=== PATIENT | female | born 1985 | race Caucasian/White ===

== ENCOUNTER 2019-03-05 12:46 | Emergency (ER) | payer OTHER ==
[2019-03-05 14:53] LABS: ADD MAN DIFF? NO
[2019-03-05 14:57] LABS: WHITE BLOOD COUNT 9.4 10^3/ul (4.8-10.8)
[2019-03-05 14:57] LABS: BASOPHILS % 0.4 % (0.0-2.0); EOSINOPHILS % 0.4 % (0.0-7.0); HEMATOCRIT 36.2 % (37.0-47.0); HEMOGLOBIN 12.2 g/dl (12.0-16.0); LYMPHOCYTES # 1.7 10^3/ul (0.8-2.9); LYMPHOCYTES % 17.8 % (15.0-51.0); MEAN CORPUSCULAR HEMOGLOBIN 27.6 pg (29.0-33.0); MEAN CORPUSCULAR HGB CONC 33.7 g/dl (32.0-37.0); MEAN CORPUSCULAR VOLUME 81.9 fl (82.0-101.0); MEAN PLATELET VOLUME 10.1 fl (7.4-10.4); MONOCYTE # 0.7 10^3/ul (0.3-0.9); MONOCYTES % 7.5 % (0.0-11.0); NEUTROPHIL # 6.9 10^3/ul (1.6-7.5); NEUTROPHILS % 73.6 % (39.0-77.0); PLATELET COUNT 340 10^3/UL (140-415); RED BLOOD COUNT 4.42 10^6/ul (4.20-5.40); RED CELL DISTRIBUTION WIDTH 12.1 % (11.5-14.5)
[2019-03-05 15:32] LABS: ANION GAP 10 (5-13); BLOOD UREA NITROGEN 14 mg/dl (7-20); CARBON DIOXIDE 24 mmol/L (21-31); CHLORIDE 102 mmol/L (97-110); CREATININE 0.71 mg/dl (0.44-1.00); Estimated GFR > 60 mL/min (>60); GLUCOSE 327 mg/dl (70-220); POTASSIUM 4.1 mmol/L (3.5-5.1); SODIUM 136 mmol/L (135-144)
[2019-03-05] MEDS: BUPIVACAINE 0.25% (MPF) 30 ML INJ INJ (15:40)
[2019-03-05] MEDS: LIDOCAINE 4% CR TOP (15:40)
[2019-03-05] MEDS: LIDOCAINE 1% (MDV) 10 ML INJ INJ (15:40)
== END 2019-03-05 16:39 | disposition home or self-care (01) ==
LOC: FTE 16:39
DX: L02.214 Cutaneous abscess of groin (principal); E11.9 Type 2 diabetes mellitus without complications
CPT/HCPCS: 76536; 80048; 84703; 85025; 99284-25

== ENCOUNTER 2019-03-07 10:43 | Emergency (ER) | payer OTHER | END 2019-03-07 13:25 | disposition home or self-care (01) | LOC: FTE 10:43 | DX: L02.214 Cutaneous abscess of groin (principal) | CPT/HCPCS: 99281; Z7502 ==

== ENCOUNTER 2019-03-08 10:51 | Emergency (ER) | payer SELFPAY, OTHER | END 2019-03-08 15:10 | disposition left against medical advice (07) | LOC: FTE 15:10 | DX: Z53.21 Procedure and treatment not carried out due to patient leaving prior to being seen by health care provider (principal) ==